=== PATIENT | female | born 1955 | race Caucasian/White ===

== ENCOUNTER 2018-10-25 12:56 | Emergency (ER) | payer OTHER ==
[2018-10-25] MEDS ORDERED: NA CHLORIDE 0.9% 1,000 ML ONE (13:36)
[2018-10-25 13:40] LABS: Urine Blood NEGATIVE (NEG); Urine Glucose NEGATIVE (NEG); Urine Protein NEGATIVE (NEG)
[2018-10-25 13:53] LABS: Absolute Lymphocytes (CBC) 1.7 K/uL (0.7-4.9); Absolute Monocytes 0.4 K/uL (0.1-1.3); Absolute Neutrophil 2.8 K/uL (1.8-8.0); Basophils % 0.9 % (0-1.3); Eosinophils % 2.4 % (0-4.4); Hematocrit 40.4 % (36.0-45.0); Lymphocytes % 33.3 % (15.3-44.8); MPV 9.4 fL (7.6-11.3); Monocytes % 7.1 % (3.3-12.3); RBC Red Blood Cell Count 4.36 M/uL (3.86-4.86)
[2018-10-25 14:04] LABS: Protime INR 0.88
--- NOTE | 2018-10-25 14:05 | ER ---
Nurse's Notes [facility] Name: Sandra Rodriguez Age: 63 yrs Sex: Female : 1955 Arrival Date: 10/25/2018 Time: 13:00 Bed 13 Private MD: Sunshine Merchant H Diagnosis: Dizziness and giddiness Presentation: 10/25 13:09 Presenting complaint: Patient states: Pain between shoulder blades that began Sunday ph , "pins and needles" to L arm that began Sun, dizziness that started yesterday, states, " I just don't feel right", denies fever, N/V, injury or recent illness. Transition of care: patient was not received from another setting of care. Onset of symptoms was October 25, 2018. Risk Assessment: Do you want to hurt yourself or someone else? Patient reports no desire to harm self or others. Initial Sepsis Screen: Does the patient meet any 2 criteria? No. Patient's initial sepsis screen is negative. Does the patient have a suspected source of infection? No. Patient's initial sepsis screen is negative. Care prior to arrival: None. 13:09 Method Of Arrival: Ambulatory ph 13:09 Acuity: BARRON 3 ph Historical: - Allergies: 13:13 PENICILLINS; ph 13:13 Cipro; ph - Home Meds: 13:13 levothyroxine 125 mcg tab 1 tab once daily [Active]; ph - PMHx: 13:13 Hypothyroidism; ph - PSHx: 13:13 ; Hysterectomy; ph - Immunization history:: Adult Immunizations unknown. - Social history:: Smoking status: Patient/guardian denies using tobacco. - Ebola Screening: : No symptoms or risks identified at this time. - Family history:: not pertinent. Screenin:31 Abuse screen: Denies threats or abuse. Nutritional screening: No deficits noted. tw2 Tuberculosis screening: No symptoms or risk factors identified. Fall Risk None identified. Assessment: 13:10 General: Appears in no apparent distress. slender, well groomed, Behavior is calm, tw2 cooperative, appropriate for age. Pain: Complains of pain in back. Neuro: Level of Consciousness is awake, alert, obeys commands, Oriented to person, place, time, situation, Reports dizziness. Cardiovascular: Heart tones S1 S2 Patient's skin is warm and dry. Respiratory: Airway is patent Respiratory effort is even, unlabored, Respiratory pattern is regular, symmetrical, Breath sounds are clear bilaterally. GI: No signs and/or symptoms were reported involving the gastrointestinal system. Abdomen is round non-distended, obese, Bowel sounds present X 4 quads. : No signs and/or symptoms were reported regarding the genitourinary system. EENT: No signs and/or symptoms were reported regarding the EENT system. Derm: No signs and/or symptoms reported regarding the dermatologic system. Musculoskeletal: Range of motion: intact in all extremities. 14:53 Reassessment: Patient appears in no apparent distress at this time. No changes from tw2 previously documented assessment. Patient and/or family updated on plan of care and expected duration. Pain level reassessed. Patient is alert, oriented x 3, equal unlabored respirations, skin warm/dry/pink. 15:43 Reassessment: Patient appears in no apparent distress at this time. No changes from tw2 previously documented assessment. Patient and/or family updated on plan of care and expected duration. Pain level reassessed. Patient is alert, oriented x 3, equal unlabored respirations, skin warm/dry/pink. 15:45 Reassessment: per Dr. Almazan, all is good for discharge, test complete and results tw2 verified. Vital Signs: 13:11 BP 156 / 97; Pulse 72; Resp 18; Temp 98.2; Pulse Ox 99% on R/A; Weight 107.05 kg; ph Height 5 ft. 7 in. (170.18 cm); 14:20 BP 143 / 72; Pulse 67; Resp 17; Pulse Ox 99% on R/A; tw2 15:43 BP 127 / 72; Pulse 69; Resp 17; Pulse Ox 100% on R/A; tw2 13:11 Body Mass Index 36.96 (107.05 kg, 170.18 cm) ph NIH Stroke Scale Scores: 14:05 NIHSS Score: 0 estefani ED Course: 13:00 Patient arrived in ED. mr 13:01 Sunshine Merchant DO is Private Physician. mr 13:09 Bed in low position. Call light in reach. Adult w/ patient. ekg monitor on. Pulse tw2 ox on. NIBP on. 13:11 Geovanny Mendoza MD is Attending Physician. estefani 13:11 Triage completed. ph 13:13 Arm band placed on Patient placed in an exam room, on a stretcher. ph 13:15 Roberta Cabrera RN is Primary Nurse. tw2 13:31 Inserted saline lock: 22 gauge in left antecubital area, using aseptic technique. tw2 ,using aseptic technique. per MYLENE Watson Blood collected. 13:43 XRAY Chest (1 view) In Process Unspecified. EDMS 13:45 X-ray completed. Portable x-ray completed in exam room. Patient tolerated procedure mh1 well. 13:51 EKG done, by airdrop systems technician. reviewed by Geovanny Mendoza MD. sm3 14:04 aFye Almazan MD is Hospitalizing Provider. estefani 14:40 2D Echocardiogram with Doppler completed by Actuarial Technician. dt2 14:48 Sunshine Merchant DO is Referral Physician. rp3 14:[address] Scan, Awaiting: Echo, and CT pending PRIOR to discharge per Dr. Almazan. tw2 15:03 CT Head C Spine In Process Unspecified. EDMS 15:45 No provider procedures requiring assistance completed. IV discontinued, intact, tw2 bleeding controlled, No redness/swelling at site. Pressure dressing applied. Administered Medications: 13:33 Drug: NS 0.9% 1000 ml Route: IV; Rate: 125 ml/hr; Site: left antecubital; tw2 15:39 Follow up: Response: No adverse reaction; IV Status: Order to discontinue infusion tw2 14:10 Drug: Lopressor 25 mg Route: PO; tw2 15:38 Follow up: Response: No adverse reaction tw2 14:15 Drug: Lovenox 1 mg/kg Route: Sub-Q; Site: right lower abdomen; tw2 15:38 Follow up: Response: No adverse reaction tw2 14:21 Drug: Aspirin Chewable Tablet 324 mg Route: PO; tw2 15:39 Follow up: Response: No adverse reaction tw2 14:22 Drug: Pepcid 20 mg Route: IVP; Site: left antecubital; tw2 15:38 Follow up: Response: No adverse reaction tw2 Outcome: 14:05 Decision to Hospitalize by Provider. estefani 14:50 Discharge ordered by . rp3 15:45 Discharged to home ambulatory, with significant other. tw2 15:45 Condition: stable 15:45 Discharge instructions given to patient, significant other, Instructed on discharge instructions, follow up and referral plans. Demonstrated understanding of instructions, follow-up care. 15:46 Patient left the ED. tw2 NIH Stroke Scale - NIH Stroke Score Date: 10/25/2018 Time: 14:05 Total Score = 0 1a. Level of Consciousness (LOC) - 0(Alert) 1b. Level of Consciousness (LOC) (Year \\T\\ Age) - 0(Both) 1c. LOC Commands (Open \\T\\ Closes Eyes/Assistant Women'S Tennis Coach) - 0(Both) 2. Best Gaze (Lateral Gaze Paresis) - 0(Normal) 3. Visual Field Loss - 0(No visual loss) 4. Facial Palsy - 0(Normal) 5a. Left Arm: Motor (10-second hold) - 0(No drift) 5b. Right Arm: Motor (10-second hold) - 0(No drift) 6a. Left Leg: Motor (5-second hold - always test supine) - 0(No drift) 6b. Right Leg: Motor (5-second hold - always test supine) - 0(No drift) 7. Limb Ataxia (finger/nose \\T\\ heel/beyer - test with eyes open) - 0(Absent) 8. Sensory Loss (pinprick arms/legs/face) - 0(Normal) 9. Best Language: Aphasia (description/naming/reading) - 0(No aphasia) 10. Dysarthria (speech clarity - read or repeat words) - 0(Normal) 11. Extinction and Inattention (visual/tactile/auditory/spatial/personal) - 0(No abnormality) Initials: estefani Signatures: Dispatcher [employer] EDMS Geovanny Mendoza MD MD cha Rivera, Mary Radha Briceño mh1 Shirley August RN RN Roberta Cabrera RN RN tw2 Faye Almazan MD MD rp3 Sheila Figueroa dt2 Treva Salazar 3
--- NOTE | 2018-10-25 14:05 | EDPHYS ---
Physician Documentation [facility] Name: Sandra Rodriguez Age: 63 yrs Sex: Female : 1955 Arrival Date: 10/25/2018 Time: 13:00 Bed 13 Private MD: Sunshine Merchant H ED Physician Geovanny Mendoza HPI: 10/25 13:59 This 63 yrs old Female presents to ER via Ambulatory with complaints of Back estefani Pain, Dizziness, Numbness Of Arm. 13:59 The patient presents with pain that is acute. The symptoms are located in the thoracic estefani area. Onset: The symptoms/episode began/occurred 2 day(s) ago. The pain radiates to the left arm. Severity of symptoms: At their worst the symptoms were mild, in the emergency department the symptoms are unchanged. 14:00 The patient or guardian reports chest pain that is located primarily in the atypical. estefani Onset: 3 day(s) ago. Associated signs and symptoms: Pertinent positives: weakness. Modifying factors: The patient symptoms are alleviated by nothing, the patient symptoms are aggravated by any movement. Historical: - Allergies: 13:13 PENICILLINS; ph 13:13 Cipro; ph - Home Meds: 13:13 levothyroxine 125 mcg tab 1 tab once daily [Active]; ph - PMHx: 13:13 Hypothyroidism; ph - PSHx: 13:13 ; Hysterectomy; ph - Immunization history:: Adult Immunizations unknown. - Social history:: Smoking status: Patient/guardian denies using tobacco. - Ebola Screening: : No symptoms or risks identified at this time. - Family history:: not pertinent. ROS: 14:00 Constitutional: Negative for fever, chills, and weight loss, Eyes: Negative for injury, estefani pain, redness, and discharge, ENT: Negative for injury, pain, and discharge, Neck: Negative for injury, pain, and swelling, Cardiovascular: Negative for chest pain, palpitations, and edema, Respiratory: Negative for shortness of breath, cough, wheezing, and pleuritic chest pain, Abdomen/GI: Negative for abdominal pain, nausea, vomiting, diarrhea, and constipation, : Negative for injury, bleeding, discharge, and swelling, MS/Extremity: Negative for injury and deformity, Skin: Negative for injury, rash, and discoloration, Psych: Negative for depression, anxiety, suicide ideation, homicidal ideation, and hallucinations, Allergy/Immunology: Negative for hives, rash, and allergies, Endocrine: Negative for neck swelling, polydipsia, polyuria, polyphagia, and marked weight changes. 14:00 Back: Positive for pain at rest, of the thoracic area. 14:00 Neuro: Positive for dizziness. Exam: 14:00 Constitutional: This is a well developed, well nourished patient who is awake, alert, estefani and in no acute distress. Head/Face: Normocephalic, atraumatic. Eyes: Pupils equal round and reactive to light, extra-ocular motions intact. Lids and lashes normal. Conjunctiva and sclera are non-icteric and not injected. Cornea within normal limits. Periorbital areas with no swelling, redness, or edema. ENT: Nares patent. No nasal discharge, no septal abnormalities noted. Tympanic membranes are normal and external auditory canals are clear. Oropharynx with no redness, swelling, or masses, exudates, or evidence of obstruction, uvula midline. Mucous membranes moist. Neck: Trachea midline, no thyromegaly or masses palpated, and no cervical lymphadenopathy. Supple, full range of motion without nuchal rigidity, or vertebral point tenderness. No Meningismus. Chest/axilla: Normal chest wall appearance and motion. Nontender with no deformity. No lesions are appreciated. Cardiovascular: Regular rate and rhythm with a normal S1 and S2. No gallops, murmurs, or rubs. Normal PMI, no JVD. No pulse deficits. Respiratory: Lungs have equal breath sounds bilaterally, clear to auscultation and percussion. No rales, rhonchi or wheezes noted. No increased work of breathing, no retractions or nasal flaring. Abdomen/GI: Soft, non-tender, with normal bowel sounds. No distension or tympany. No guarding or rebound. No evidence of tenderness throughout. Back: No spinal tenderness. No costovertebral tenderness. Full range of motion. Skin: Warm, dry with normal turgor. Normal color with no rashes, no lesions, and no evidence of cellulitis. MS/ Extremity: Pulses equal, no cyanosis. Neurovascular intact. Full, normal range of motion. Neuro: Awake and alert, GCS 15, oriented to person, place, time, and situation. Cranial nerves II-XII grossly intact. Motor strength 5/5 in all extremities. Sensory grossly intact. Cerebellar exam normal. Normal gait. Psych: Awake, alert, with orientation to person, place and time. Behavior, mood, and affect are within normal limits. Vital Signs: 13:11 BP 156 / 97; Pulse 72; Resp 18; Temp 98.2; Pulse Ox 99% on R/A; Weight 107.05 kg; ph Height 5 ft. 7 in. (170.18 cm); 14:20 BP 143 / 72; Pulse 67; Resp 17; Pulse Ox 99% on R/A; tw2 15:43 BP 127 / 72; Pulse 69; Resp 17; Pulse Ox 100% on R/A; tw2 13:11 Body Mass Index 36.96 (107.05 kg, 170.18 cm) ph NIH Stroke Scale Scores: 14:05 NIHSS Score: 0 estefani MDM: 13:11 Patient medically screened. estefani 14:05 Data reviewed: vital signs, nurses notes, lab test result(s), EKG, radiologic studies, estefani plain films. 10/25 13:17 Order name: Basic Metabolic Panel [facility] 10/25 13:17 Order name: CBC with Diff [facility] 10/25 13:17 Order name: LFT's; Complete Time: 14:37 [facility] 10/25 13:17 Order name: Magnesium; Complete Time: 14:37 [facility] 10/25 13:17 Order name: NT PRO-BNP; Complete Time: 14:37 [facility] 10/25 13:17 Order name: PT-INR; Complete Time: 14:37 [facility] 10/25 13:17 Order name: Troponin (emerg Dept Use Only); Complete Time: 14:37 [facility] 10/25 13:17 Order name: XRAY Chest (1 view); Complete Time: 14:37 [facility] 10/25 13:17 Order name: Lipase; Complete Time: 14:37 [facility] 10/25 13:17 Order name: Basic Metabolic Panel; Complete Time: 14:37 EDMS 10/25 13:17 Order name: CBC with Automated Diff; Complete Time: 14:37 EDME 10/25 13:27 Order name: Urine Dipstick--Ancillary (enter results); Complete Time: 14:37 eb 10/25 14:04 Order name: TSH [facility] 10/25 14:40 Order name: T4 Free EDME 10/25 13:17 Order name: EKG; Complete Time: 13:18 [facility] 10/25 13:17 Order name: Cardiac monitoring; Complete Time: 13:20 [facility] 10/25 13:17 Order name: EKG - Nurse/Tech; Complete Time: 13:52 [facility] 10/25 13:17 Order name: IV Saline Lock; Complete Time: 13:52 [facility] 10/25 13:17 Order name: Labs collected and sent; Complete Time: 13:52 [facility] 10/25 13:17 Order name: O2 Per Protocol; Complete Time: 13:53 [facility] 10/25 13:17 Order name: O2 Sat Monitoring; Complete Time: 13:53 [facility] 10/25 13:17 Order name: Urine Dipstick-Ancillary (obtain specimen); Complete Time: 13:52 [facility] 10/25 14:04 Order name: Echo w/ Doppler [facility] 10/25 14:53 Order name: CT Head C Spine rp3 Administered Medications: 13:33 Drug: NS 0.9% 1000 ml Route: IV; Rate: 125 ml/hr; Site: left antecubital; tw2 15:39 Follow up: Response: No adverse reaction; IV Status: Order to discontinue infusion tw2 14:10 Drug: Lopressor 25 mg Route: PO; tw2 15:38 Follow up: Response: No adverse reaction tw2 14:15 Drug: Lovenox 1 mg/kg Route: Sub-Q; Site: right lower abdomen; tw2 15:38 Follow up: Response: No adverse reaction tw2 14:21 Drug: Aspirin Chewable Tablet 324 mg Route: PO; tw2 15:39 Follow up: Response: No adverse reaction tw2 14:22 Drug: Pepcid 20 mg Route: IVP; Site: left antecubital; tw2 15:38 Follow up: Response: No adverse reaction tw2 Disposition: 10/25/18 14:50 Discharged to Home. Impression: Dizziness and giddiness. - Condition is Stable. - Discharge Instructions: Dizziness, [id number], Focal Neuropathy. - Medication Reconciliation Form, Thank You Letter, Antibiotic Education, Prescription Opioid Use form. - Follow up: Sunshine Merchant DO; When: 48 Hours; Reason: Recheck today's complaints. - Problem is new. - Symptoms are resolved. NIH Stroke Scale - NIH Stroke Score Date: 10/25/2018 Time: 14:05 Total Score = 0 1a. Level of Consciousness (LOC) - 0(Alert) 1b. Level of Consciousness (LOC) (Year \T\ Age) - 0(Both) 1c. LOC Commands (Open \T\ Closes Eyes/Criminal Justice Teacher) - 0(Both) 2. Best Gaze (Lateral Gaze Paresis) - 0(Normal) 3. Visual Field Loss - 0(No visual loss) 4. Facial Palsy - 0(Normal) 5a. Left Arm: Motor (10-second hold) - 0(No drift) 5b. Right Arm: Motor (10-second hold) - 0(No drift) 6a. Left Leg: Motor (5-second hold - always test supine) - 0(No drift) 6b. Right Leg: Motor (5-second hold - always test supine) - 0(No drift) 7. Limb Ataxia (finger/nose \T\ heel/beyer - test with eyes open) - 0(Absent) 8. Sensory Loss (pinprick arms/legs/face) - 0(Normal) 9. Best Language: Aphasia (description/naming/reading) - 0(No aphasia) 10. Dysarthria (speech clarity - read or repeat words) - 0(Normal) 11. Extinction and Inattention (visual/tactile/auditory/spatial/personal) - 0(No abnormality) Initials: estefani Signatures: Dispatcher [employer] EDGeovanny Crandall MD MD cha Hall, Patricia RN RN Roberta Cabrera RN RN tw2 Faey Almazan MD MD rp3 Corrections: (The following items were deleted from the chart) 14:48 14:05 Hospitalization Ordered by Faye Almazan MD for Observation. Preliminary rp3 diagnosis is Chest pain, unspecified; Essential (primary) hypertension; Dizziness and giddiness. Bed requested for Telemetry/MedSurg (observation). Status is Observation. Condition is Stable. Problem is new. Symptoms have improved. UTI on Admission? No. estefani 15:46 14:50 10/25/2018 14:50 Discharged to Home. Impression: Dizziness and giddiness. tw2 Condition is Stable. Forms are Medication Reconciliation Form, Thank You Letter, Antibiotic Education, Prescription Opioid Use. Follow up: Sunshine Merchant; When: 48 Hours; Reason: Recheck today's complaints. Problem is new. Symptoms are resolved. rp3
[2018-10-25 14:19] LABS: ALT/SGPT 28 U/L (12-78); AST/SGOT 19 U/L (15-37); Albumin 3.8 g/dL (3.4-5.0); Alkaline Phosphatase 77 U/L (45-117); BUN Blood Urea Nitrogen 18 mg/dL (7-18); Bicarbonate 31 mmol/L (21-32); Bilirubin Direct < 0.1 mg/dL (0-0.2); Bilirubin Total 0.3 mg/dL (0.2-1.0); Glucose Level 87 mg/dL (74-106); Lipase 124 U/L (73-393); Magnesium 2.5 mg/dL (1.8-2.4); NT PRO-BNP 127 pg/mL (<125); Potassium 3.5 mmol/L (3.5-5.1); Protein, Total 6.8 g/dL (6.4-8.2); Sodium Level 144 mmol/L (136-145); Troponin (Emerg Dept Use Only) < 0.02 ng/mL (0.0-0.045)
[2018-10-25] MEDS ORDERED: ASPIRIN 81 MG CHEWABLE TABLET ONE (14:22)
[2018-10-25] MEDS ORDERED: ENOXAPARIN 100 MG/ML SYR SQ ONE (14:23)
[2018-10-25] MEDS ORDERED: FAMOTIDINE 20 MG/2 ML VIAL IV ONE (14:23)
[2018-10-25] MEDS ORDERED: METOPROLOL TAR 25 MG TAB ONE (14:23)
--- NOTE | 2018-10-25 14:31 | RAD REPORT ---
EXAM DESCRIPTION: RAD - Chest Single View - 10/25/2018 1:43 pm CLINICAL HISTORY: Cough, chest pain COMPARISON: None. TECHNIQUE: AP portable chest image was obtained 1341 hours . FINDINGS: Interstitial markings are mildly prominent. Baseline for the patient is unknown. There is no focal consolidation. No failure or volume overload. Heart and vasculature are normal. No measurabl e pleural effusion and no pneumothorax. No acute bony abnormality seen. No acute aortic findings susp ected. IMPRESSION: No focal lung parenchymal process. No failure or volume overload. Interstitial markings are mildly prominent suspected to be baseline.
[2018-10-25 14:37] LABS: Thyroid Stimulating Hormone 5.63 uIU/mL (0.360-3.740)
--- NOTE | 2018-10-25 15:21 | RAD REPORT ---
EXAM DESCRIPTION: CT - [id number] - 10/25/2018 3:03 pm CLINICAL HISTORY: Trauma, head and neck injury. NUMBNESS/TINGLING COMPARISON: No comparisons TECHNIQUE: Axial 5 mm thick images of the head were obtained. Axial 2 mm thick images of the cervical spine were obtained with sagittal and coronal reconstruction images generated and reviewed. All CT scans are performed using dose optimization technique as appropriate and may include automated exposure control or mA/KV adjustment according to patient size. FINDINGS: CT HEAD WITHOUT CONTRAST: No acute hemorrhage, hydrocephalus or extra-axial collection is identified.No areas of brain edema or midline shift. The paranasal sinuses and mastoids are clear.The calvarium is intact. CT CERVICAL SPINE WITHOUT CONTRAST: No fracture or subluxation.No prevertebral soft tissues swelling is identified. Bilateral carotid at herosclerosis. IMPRESSION: No acute intracranial or cervical spine findings.
--- NOTE | 2018-10-25 16:43 | EKG ---
Test Date: 2018-10-25 Test Time: 13:51:40 Surgery Scheduling Coordinator: JORJE MEASUREMENT RESULTS: Intervals: Rate: 66 CT: 170 QRSD: 106 QT: 422 QTc: 442 Bailey: P: 65 CT: 170 QRS: 10 T: 44 INTERPRETIVE STATEMENTS: Normal sinus rhythm Normal ECG Compared to ECG 01/21/2015 18:14:29 No significant changes Electronically Signed On 10-25-18 16:42:34 CDT by Benny Kessler
--- NOTE | 2018-10-25 17:15 | ECHO ---
HEIGHT: 5 ft 7 in WEIGHT: 236 lb 0 oz DATE OF STUDY: 10/25/[address]: Geovanny Mendoza MD 2-DIMENSIONAL: YES M.MODE: YES DOPPLER: YES COLOR FLOW: YES TDS: PORTABLE: DEFINITY: BUBBLE STUDY: DIAGNOSIS: CHEST PAIN CARDIAC HISTORY: CATHERIZATION: NO SURGERY: NO PROSTHETIC VALVE: NO PACEMAKER: NO MEASUREMENTS (cm) DIASTOLIC (NORMALS) SYSTOLIC (NORMALS) IVSd 1.1 (0.6-1.2) LA Diam 3.5 (1.9-4.0) LVEF 62% LVIDd 5.2 (3.5-5.7) LVIDs 3.4 (2.0-3.5) %FS 34% LVPWd 1.1 (0.6-1.2) Ao Diam 2.6 (2.0-3.7) 2 DIMENSIONAL ASSESSMENT: RIGHT ATRIUM: NORMAL LEFT ATRIUM: NORMAL RIGHT VENTRICLE: NORMAL LEFT VENTRICLE: NORMAL TRICUSPID VALVE: NORMAL MITRAL VALVE: NORMAL PULMONIC VALVE: NORMAL AORTIC VALVE: SCLEROSIS PERICARDIAL EFFUSION: NONE AORTIC ROOT: NORMAL LEFT VENTRICULAR WALL MOTION: NORMAL DOPPLER/COLOR FLOW: NORMAL COMMENTS: NORMAL LEFT VENTRICULAR SIZE AND FUNCTION. AORTIC SCLEROSIS. NO WALL MOTION ABNORMALITY. NO EFFUSION. TECHNOLOGIST: WANDA BARNES
== END 2018-10-25 15:46 | disposition home or self-care (01) ==
LOC: ER 12:56
DX: R42 Dizziness and giddiness (principal); R53.1 Weakness; E03.9 Hypothyroidism, unspecified; Z88.0 Allergy status to penicillin; Z88.1 Allergy status to other antibiotic agents
CPT/HCPCS: 36415; 70450; 71045; 72125; 80048; 80076; 81003; 83690; 83735; 83880; 84439; 84443; 84484; 85025; 85610; 93005; 93306; 96361; 96372; 96374; 99284; J1650; J7030

== ENCOUNTER → 2023-08-26 | Emergency (ER) | payer OTHER ==
[~2023-08-26] MED LIST: CLOPIDOGREL 75 MG TABLET ONE; FENTANYL CITR 100 MCG/2 ML ONE; HEPARIN 5000 UNIT/ML 1 ML VIAL ONE; HEPARIN/D5W 25,000 UNIT/500 ML BAG IV ONE; NITROGLYCERIN 0.4 MG/TAB SL ONE; ONDANSETRON 4 MG/2 ML VIAL ONE; TENECTEPLASE 50 MG/10 ML VIAL IV ONE
--- NOTE | 2023-08-26 02:13 | EDPHYS ---
Physician Documentation [facility] Name: Sandra Rodriguez Age: 68 yrs Sex: Female : 1955 Arrival Date: 08/26/2023 Time: 01:59 Bed 4 Private MD: ED Physician Mickey Simms HPI: 08/25 03:00 This 68 yrs old Female presents to ER via EMS with complaints of Chest Pain. rt 03:00 Patient presents to the ED with acute onset of severe chest pain about 1230. Woke her rt up from sleep. Substernal, radiates to the right shoulder. Reports nausea, vomiting. Denies other acute complaints at this time, symptoms are severe in severity, no other aggravating or alleviating factors.. Historical: - Allergies: 02:37 Cipro; lg3 02:37 PENICILLINS; lg3 02:37 iv contrast; lg3 - Home Meds: 02:37 levothyroxine 125 mcg tab 1 tab once daily [Active]; lg3 - PMHx: 02:37 Hypothyroidism; lg3 - PSHx: 02:37 heart cath (Hypothyroidism); lg3 - Immunization history:: Adult Immunizations up to date, Client reports receiving the 2nd dose of the Covid vaccine, Flu vaccine is not up to date. - Social history:: Smoking status: Patient denies any tobacco usage or history of. Patient uses alcohol, only on a social basis. - Family history:: not pertinent. ROS: 03:00 Constitutional: Negative for fever, chills, and weight loss, Respiratory: Negative for rt shortness of breath, cough, wheezing, and pleuritic chest pain, MS/Extremity: Negative for injury and deformity, Skin: Negative for injury, rash, and discoloration, Neuro: Negative for headache, weakness, numbness, tingling, and seizure, 03:00 Cardiovascular: Positive for chest pain, Negative for edema, 03:00 Abdomen/GI: Positive for nausea and vomiting, Negative for abdominal pain, Exam: 02:21 ECG was reviewed by the Attending Physician. rt 02:33 ECG was reviewed by the Attending Physician. rt 02:59 ECG was reviewed by the Attending Physician. rt 03:00 Head/Face: Normocephalic, atraumatic. Chest/axilla: Normal chest wall appearance and rt motion. Nontender with no deformity. No lesions are appreciated. Cardiovascular: Regular rate and rhythm with a normal S1 and S2. No gallops, murmurs, or rubs. Normal PMI, no JVD. No pulse deficits. Respiratory: Lungs have equal breath sounds bilaterally, clear to auscultation and percussion. No rales, rhonchi or wheezes noted. No increased work of breathing, no retractions or nasal flaring. Abdomen/GI: Soft, non-tender, with normal bowel sounds. No distension or tympany. No guarding or rebound. No evidence of tenderness throughout. Skin: Warm, dry with normal turgor. Normal color with no rashes, no lesions, and no evidence of cellulitis. MS/ Extremity: Pulses equal, no cyanosis. Neurovascular intact. Full, normal range of motion. Neuro: Awake and alert, GCS 15, oriented to person, place, time, and situation. Cranial nerves II-XII grossly intact. Motor strength 5/5 in all extremities. Sensory grossly intact. Cerebellar exam normal. Normal gait. 03:00 Constitutional: The patient appears alert, awake, in obvious distress, moderately distressed, Vital Signs: 01:59 BP 146 / 89; Pulse 73; Resp 21; Temp 98.4; Pulse Ox 100% on R/A; Weight 76.66 kg; lg3 Height 5 ft. 6 in. ; 02:17 BP 130 / 84; Pulse 72; Resp 21; Pulse Ox 100% on R/A; km8 02:20 BP 129 / 81; Pulse 72; Resp 17 S; Pulse Ox 100% on R/A; rv1 02:25 BP 116 / 62; Pulse 76; Resp 21; Pulse Ox 100% on R/A; km8 02:30 BP 92 / 60; Pulse 89; Resp 16 S; Pulse Ox 100% on R/A; rv1 02:40 BP 99 / 67; Pulse 72; Resp 17 S; Pulse Ox 97% on R/A; rv1 02:45 BP 115 / 75; Pulse 68; Resp 16; Pulse Ox 96% on R/A; km8 02:50 BP 121 / 77; Pulse 69; Resp 16; Pulse Ox 97% on R/A; km8 02:55 BP 127 / 76; Pulse 75; Resp 16; Pulse Ox 100% on R/A; km8 03:00 BP 131 / 71; Pulse 74; Resp 15; Pulse Ox 99% on R/A; km8 03:05 BP 140 / 83; Pulse 78; Resp 21; Pulse Ox 100% on R/A; km8 03:10 BP 132 / 77; Pulse 80; Resp 18; Pulse Ox 100% on R/A; km8 01:59 Body Mass Index 27.28 (76.66 kg, 167.64 cm) lg3 MDM: 02:11 Patient medically screened. rt 03:00 Differential Diagnosis STEMI. Data reviewed: vital signs, nurses notes. Consideration rt of Admission/Observation Patient requires transfer for Entertainment Dancer. Management of patient was discussed with the following: Healthcare Network Pricing Consultant: Discussed with accepting unit aide. I considered the following discharge prescriptions or medication management in the emergency department Medications were administered in the Emergency Department. See MAR. Independent interpretation of the following test(s) in the Emergency Department X-Ray: My interpretation is No pneumothorax, interpretation of x-ray. Counseling: I had a detailed discussion with the patient and/or guardian regarding the historical points, exam findings, and any diagnostic results supporting the discharge/admit diagnosis, the need to transfer to another facility. Response to treatment: the patient's symptoms have markedly improved after treatment. ED course: Transport delayed due to availability of helicopter.. 08/25 02:11 Order name: Basic Metabolic Panel; Complete Time: 03:15 rt 08/25 02:11 Order name: CBC with Diff; Complete Time: 03:15 rt 08/25 02:11 Order name: LFT's; Complete Time: 03:15 rt 08/25 02:11 Order name: Magnesium; Complete Time: 03:15 rt 08/25 02:11 Order name: NT PRO-BNP; Complete Time: 03:15 rt 08/25 02:11 Order name: PT-INR; Complete Time: 03:15 rt 08/25 02:11 Order name: Troponin HS; Complete Time: 03:15 rt 08/25 02:11 Order name: XRAY Chest (1 view) rt 08/25 02:11 Order name: EKG; Complete Time: 02:12 rt 08/25 02:11 Order name: Cardiac monitoring; Complete Time: 02:14 rt 08/25 02:11 Order name: EKG - Nurse/Tech; Complete Time: 02:14 rt 08/25 02:11 Order name: IV Saline Lock; Complete Time: 02:14 rt 08/25 02:11 Order name: Labs collected and sent; Complete Time: 02:14 rt 08/25 02:11 Order name: O2 Per Protocol; Complete Time: :14 rt 08/25 02:11 Order name: O2 Sat Monitoring; Complete Time: 02:14 rt EC:21 Rate is 68 beats/min. Rhythm is regular, Normal Sinus Rhythm with No ectopy. QRS [place] rt is Normal. [place] interval is normal. QRS interval is normal. QT interval is normal. No Q waves. 02:33 Rate is 73 beats/min. Rhythm is regular, Normal Sinus Rhythm with No ectopy. QRS [place] rt is Normal. [place] interval is normal. QRS interval is normal. QT interval is normal. No Q waves. ST Segment is elevated in leads V1, V2. 02:59 Rate is 65 beats/min. Rhythm is regular, Sinus Rhythm with No ectopy. QRS [place] is rt Normal. [place] interval is normal. QRS interval is normal. QT interval is normal. ST Segment is elevated in lead V2. Administered Medications: 02:14 Drug: Nitroglycerin Sublingual 0.4 mg Sublingual once; every five minute if needed x3 tm6 Route: Sublingual; 03:28 Follow up: Response: No adverse reaction 02:28 Drug: Tenecteplase IV 40 mg IV at per protocol once {Co-Signature: km8 (Jami Florentino RN).} Route: IV; Rate: per protocol; Site: left forearm; 02:29 Follow up: IV Status: Completed infusion 03:27 Follow up: Response: No adverse reaction 02:34 Not Given (Other Intervention Used): TNK FOR STROKE - tenecteplase0.25 mg/kg IV jb4 at per protocol once; VA dose 02:38 Drug: Ondansetron IVP 4 mg IVP once; over 2 minutes Route: IVP; Site: left antecubital; 8 03:28 Follow up: Response: No adverse reaction 02:38 Drug: fentaNYL (PF) IVP 50 mcg IVP once Route: IVP; Site: left antecubital; 8 03:28 Follow up: Response: No adverse reaction 02:50 Drug: Clopidogrel PO 600 mg PO once Route: PO; jb4 03:27 Follow up: Response: No adverse reaction km8 02:52 Drug: Heparin ([place] Drip) 12 units/kg/hr - ([place] [address] units, D5W IV 500 ml) IV at jb4 calculated rate Per protocol; Max initial rate 1000 units/hr {Co-Signature: [email or web address] (Yang Ramey RN).} Route: IV; Rate: calculated rate; Site: right antecubital; 03:28 Follow up: IV Status: Infusion continued upon transfer km8 02:52 Drug: Heparin (VA-Bolus with thrombolytic) - HEParin IVP 60 units/kg IVP once; Max 4000 jb4 units {Co-Signature: [email or web address] (Yang Ramey RN).} Route: IVP; Site: right antecubital; 03:27 Follow up: Response: No adverse reaction km8 Disposition Summary: 08/26/23 02:13 Transfer Ordered Notes: Transfer Location: [facility] rt Reason: Higher level of care rt Condition: Critical rt Problem: new rt Symptoms: are unchanged rt Accepting Physician: (08/26/23 03:29) km8 Diagnosis - ST elevation (STEMI) myocardial infarction of unspecified site rt Forms: - Medication Reconciliation Form rt - SBAR form rt Critical care time excluding procedures: 03:00 Critical care time: Bedside Care: 30 minutes, Consultation: 10 minutes. Total time: 40 rt minutes Signatures: Dispatcher [employer] EDSanto Gomez RN RN jb4 Xi Fierro RN RN lg3 Mickey Simms MD MD rt Jami Florentino RN RN km8 Yang Ramey RN RN tm6 Jami Florentino RN, Tawney RN tm6 Corrections: (The following items were deleted from the chart) 02:23 02:21 Rate is 68 beats/min. Rhythm is regular, Normal Sinus Rhythm with No ectopy. QRS rt [place] is Normal. [place] interval is normal. QRS interval is normal. QT interval is normal. No Q waves. ST Segment is elevated in leads V1, V2, V3. rt 03:29 02:13 rt km8
[2023-08-26 02:42] LABS: PT Prothrombin Time 9.6 SECONDS (9.5-12.5); Protime INR 0.87
[2023-08-26 02:43] LABS: Absolute Eosinophils 0.1 K/uL (0-0.5); Absolute Lymphocytes (CBC) 2.4 K/uL (0.7-4.9); Absolute Monocytes 0.4 K/uL (0.1-1.3); Absolute Neutrophil 2.7 K/uL (1.8-8.0); Basophils % 0.6 % (0-1.3); Eosinophils % 1.3 % (0-4.4); Hematocrit 37.2 % (36.0-45.0); Hemoglobin 12.4 g/dL (12.0-15.0); Lymphocytes % 42.6 % (15.3-44.8); MCH 30.9 pg (27.0-35.0); MCHC 33.3 g/dL (32.0-36.0); MCV 92.8 fL (80-100); Monocytes % 7.8 % (3.3-12.3); Neutrophils % 47.7 % (41.7-73.7); Platelets 274 thou/uL (152-406); RBC Red Blood Cell Count 4.01 M/uL (3.86-4.86); Red Cell Distribution Width 14.2 % (12.1-15.2)
[2023-08-26 02:58] LABS: ALT/SGPT 29 U/L (13-56); AST/SGOT 28 U/L (15-37); Albumin 3.6 g/dL (3.4-5.0); Albumin/Globulin Ratio 1.1 (1.1-1.8); Alkaline Phosphatase 89 U/L (45-117); Anion Gap 10.4 mEq/L (5.0-15.0); BUN Blood Urea Nitrogen 10 mg/dL (7-18); Bicarbonate 27 mEq/L (21-32); Bilirubin Total 0.2 mg/dL (0.2-1.0); Globulin 3.2 g/dL (2.3-3.5); Glomerular Filtration Rate 98 ml/min (=/>90); Glucose Level 129 mg/dL (74-106); Magnesium 2.1 mg/dL (1.6-2.4); NT PRO-BNP 132 pg/mL (<125); Potassium 3.4 mEq/L (3.5-5.1); Protein, Total 6.8 g/dL (6.4-8.2); Sodium Level 140 mEq/L (136-145); Troponin High Sensitivity 56.5 pg/mL (<58.9)
[2023-08-26 03:15] LABS: Bilirubin Direct < 0.1 mg/dL (0-0.2); Bilirubin Indirect, Calculated ND mg/dL (0.2-0.8)
--- NOTE | 2023-08-26 03:30 | ER ---
Nurse's Notes [facility] Name: Sandra Rodriguez Age: 68 yrs Sex: Female : 1955 Arrival Date: 08/26/2023 Time: 01:59 Bed 4 Private MD: Diagnosis: ST elevation (STEMI) myocardial infarction of unspecified site Presentation: 08/25 01:59 Chief complaint: Patient states: sudden onset CP radiating to left shoulder and arm. 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 pain 03/13. Coronavirus screen: Client denies travel out of the [place] in the last 14 days. At this time, the client does not indicate any symptoms associated with coronavirus-19. Ebola Screen: No symptoms or risks identified at this time. Initial Sepsis Screen: Does the patient meet any 2 criteria? No. Patient's initial sepsis screen is negative. Does the patient have a suspected source of infection? No. Patient's initial sepsis screen is negative. Risk Assessment: Do you want to hurt yourself or someone else? Patient reports no desire to harm self or others. Onset of symptoms was August 26, 2023. Care prior to arrival: Medication(s) given: ASA, 325 mg, IV initiated. 20 GA, in the right antecubital area, Glucose check: 81. 01:59 Method Of Arrival: EMS: [facility] lg3 01:59 Acuity: BARRON 2 lg3 Triage Assessment: 02:37 General: Appears in no apparent distress. uncomfortable, Behavior is calm, cooperative. lg3 Pain: Complains of pain in chest Pain radiates to left shoulder, left arm Pain currently is 10 out of 10 on a pain scale. Alleviated by nothing. Noted to be guarding, resistant to movement. EENT: No deficits noted. No signs and/or symptoms were reported regarding the EENT system. Neuro: No deficits noted. [place] Agitation-Sedation Scale (RASS): 0 - Alert and Calm Level of Consciousness is awake, alert, obeys commands, Oriented to person, place, time, situation. Cardiovascular: Reports chest pain, Capillary refill < 3 seconds Clubbing of nail beds is absent JVD is absent Patient's skin is warm and dry. Rhythm is sinus rhythm. Respiratory: No deficits noted. Airway is patent Respiratory effort is even, unlabored, Respiratory pattern is regular, symmetrical, Breath sounds are clear bilaterally. GI: No deficits noted. Abdomen is round non-distended, Reports nausea. : No deficits noted. No signs and/or symptoms were reported regarding the genitourinary system. Derm: No deficits noted. No signs and/or symptoms reported regarding the dermatologic system. Skin is intact, is healthy with good turgor, Skin is dry, Skin is normal, Skin temperature is warm. Musculoskeletal: No deficits noted. No signs and/or symptoms reported regarding the musculoskeletal system. Circulation, motion, and sensation intact. Range of motion: intact in all extremities. Historical: - Allergies: 02:37 Cipro; lg3 02:37 PENICILLINS; lg3 02:37 iv contrast; lg3 - Home Meds: 02:37 levothyroxine 125 mcg tab 1 tab once daily [Active]; lg3 - PMHx: 02:37 Hypothyroidism; lg3 - PSHx: 02:37 heart cath (Hypothyroidism); lg3 - Immunization history:: Adult Immunizations up to date, Client reports receiving the 2nd dose of the Covid vaccine, Flu vaccine is not up to date. - Social history:: Smoking status: Patient denies any tobacco usage or history of. Patient uses alcohol, only on a social basis. - Family history:: not pertinent. Screenin:59 [facility] ED Fall Risk Assessment (Adult) History of falling in the last 3 months, lg3 including since admission No falls in past 3 months (0 pts). Abuse screen: Denies threats or abuse. Denies injuries from another. Nutritional screening: No deficits noted. Tuberculosis screening: No symptoms or risk factors identified. Assessment: 02:38 Reassessment: report given to Dorota CHAKRABORTY in [facility] CCU. tm6 Vital Signs: 01:59 BP 146 / 89; Pulse 73; Resp 21; Temp 98.4; Pulse Ox 100% on R/A; Weight 76.66 kg; lg3 Height 5 ft. 6 in. ; 02:17 BP 130 / 84; Pulse 72; Resp 21; Pulse Ox 100% on R/A; km8 02:20 BP 129 / 81; Pulse 72; Resp 17 S; Pulse Ox 100% on R/A; rv1 02:25 BP 116 / 62; Pulse 76; Resp 21; Pulse Ox 100% on R/A; km8 02:30 BP 92 / 60; Pulse 89; Resp 16 S; Pulse Ox 100% on R/A; rv1 02:40 BP 99 / 67; Pulse 72; Resp 17 S; Pulse Ox 97% on R/A; rv1 02:45 BP 115 / 75; Pulse 68; Resp 16; Pulse Ox 96% on R/A; km8 02:50 BP 121 / 77; Pulse 69; Resp 16; Pulse Ox 97% on R/A; km8 02:55 BP 127 / 76; Pulse 75; Resp 16; Pulse Ox 100% on R/A; km8 03:00 BP 131 / 71; Pulse 74; Resp 15; Pulse Ox 99% on R/A; km8 03:05 BP 140 / 83; Pulse 78; Resp 21; Pulse Ox 100% on R/A; km8 03:10 BP 132 / 77; Pulse 80; Resp 18; Pulse Ox 100% on R/A; km8 01:59 Body Mass Index 27.28 (76.66 kg, 167.64 cm) lg3 ED Course: 01:59 Initial lab(s) drawn, by me, sent to lab. Inserted saline lock: 22 gauge in left lg3 forearm, using aseptic technique. Blood collected. Patient maintains SpO2 saturation greater than 95% on room air. 01:59 Maintain EMS IV. Dressing intact. Good blood return noted. Site clean \T\ dry. Gauge \T\ lg 3 site: 20 RAC. 01:59 Patient has correct armband on for positive identification. Placed in gown. Bed in low lg3 position. Call light in reach. Side rails up X 1. Client placed on continuous cardiac and pulse oximetry monitoring. NIBP monitoring applied. school lunch monitor on. Door closed. Noise minimized. Warm blanket given. Family accompanied patient. 02:09 Patient arrived in ED. rv1 02:09 Initiated transfer with [facility]. rv1 02:11 Mickey Simms MD is Attending Physician. rt 02:16 EKG done, by ED staff, reviewed by Mickey Simms MD. tm6 02:22 Called [facility], given 40 min ETA. rv1 02:[address] Gayle to [place] [id number] bed 12. rv1 02:30 XRAY Chest (1 view) In Process Unspecified. EDMS 02:37 Triage completed. lg3 02:37 Arm band placed on right wrist. lg3 03:27 No provider procedures requiring assistance completed. Patient transferred, IV remains km8 in place. 03:27 Provided Education on: transfer process. km8 Administered Medications: 02:14 Drug: Nitroglycerin Sublingual 0.4 mg Sublingual once; every five minute if needed x3 tm6 Route: Sublingual; 03:28 Follow up: Response: No adverse reaction 8 02:28 Drug: Tenecteplase IV 40 mg IV at per protocol once {Co-Signature: [email or web address] (Jami Florentino RN).} Route: IV; Rate: per protocol; Site: left forearm; 02:29 Follow up: IV Status: Completed infusion 8 03:27 Follow up: Response: No adverse reaction 8 02:34 Not Given (Other Intervention Used): TNK FOR STROKE - tenecteplase0.25 mg/kg IV jb4 at per protocol once; [place] dose 02:38 Drug: Ondansetron IVP 4 mg IVP once; over 2 minutes Route: IVP; Site: left antecubital; km8 03:28 Follow up: Response: No adverse reaction 8 02:38 Drug: fentaNYL (PF) IVP 50 mcg IVP once Route: IVP; Site: left antecubital; km8 03:28 Follow up: Response: No adverse reaction 8 02:50 Drug: Clopidogrel PO 600 mg PO once Route: PO; jb4 03:27 Follow up: Response: No adverse reaction km8 02:52 Drug: Heparin ([place] Drip) 12 units/kg/[place] - ([place] [address] units, D5W IV 500 ml) IV at jb4 calculated rate Per protocol; Max initial rate 1000 units/hr {Co-Signature: [email or web address] (Yang Ramey RN).} Route: IV; Rate: calculated rate; Site: right antecubital; 03:28 Follow up: IV Status: Infusion continued upon transfer km8 02:52 Drug: Heparin ([place]-Bolus with thrombolytic) - HEParin IVP 60 units/kg IVP once; Max 4000 jb4 units {Co-Signature: triston (Yang Ramey RN).} Route: IVP; Site: right antecubital; 03:27 Follow up: Response: No adverse reaction km8 Medication: 01:59 VIS not applicable for this client. lg3 Outcome: 02:13 ER care complete, transfer ordered by . rt 03:29 Transferred by helicopter to [facility], [facility], Transfer form completed. km8 03:29 critical 03:29 Instructed on the need for transfer, Demonstrated understanding of instructions, 03:29 Patient left the ED. km8 Signatures: Dispatcher [employer] EDMS Santo Zeng, RN RN jb4 Xi Fierro RN RN lg3 Mickey Simms MD MD rt Janae Garg rv1 Jami Florentino RN RN km8 Yang Ramey RN RN tm6 Jami Florentino RN Yang Ramey RN 6 Corrections: (The following items were deleted from the chart) 02:22 02:13 BP 146 / 89; Pulse 73bpm; Resp 21bpm; Pulse Ox 100% RA; rv1 rv1 02:38 02:13 BP 146 / 89; Pulse 73bpm; Resp 21bpm; Pulse Ox 100% RA; Temp 97.9F; 76.66 kg; rv1 Height 5 ft. 6 in.; BMI: 27.2; rv1 02:48 02:13 BP 146 / 89; Pulse 73bpm; Resp 21bpm; Pulse Ox 100% RA; Temp 98.4F; 76.66 kg; lg3 Height 5 ft. 6 in.; BMI: 27.2; rv1 03:02 03:00 Initiated transfer with [facility] rv1 rv1
[2023-08-26 03:57] VITALS: BP 132/77; TEMP 98.4; O2SAT 100
--- NOTE | 2023-08-27 11:12 | RAD REPORT ---
EXAM DESCRIPTION: Chest Single View CLINICAL HISTORY: CHEST PAIN COMPARISON: None. FINDINGS: Single frontal radiograph view of the chest. Cardiomediastinal silhouette: Atherosclerotic calcification of thoracic aorta. Heart is not enlarged. Lungs: No consolidation, pneumothorax, or pleural effusion. Leads overlie the chest. Bones: No acute osseous abnormality. Degenerative change of the spine and shoulders. Upper abdomen: No abnormality identified. IMPRESSION: 1. No acute pulmonary process identified. Electronically signed by: Dl Leiva DO 08/26/2023 03:01 AM CDT M Due to temporary technical issues with the PACS/Fluency reporting system, reports are being signed by the in house radiologist without review as a courtesy to ensure prompt reporting. The interpreting r adiologist is fully responsible for the content of the report.
--- NOTE | 2023-08-27 14:17 | EKG ---
Test Date: 2023-08-26 Test Time: 02:44:53 Smeller: RV MEASUREMENT RESULTS: Intervals: Rate: 65 MD: 174 QRSD: 108 QT: 472 QTc: 490 [place]: P: 64 MD: 174 QRS: -16 T: 61 INTERPRETIVE STATEMENTS: Normal sinus rhythm Septal infarct, age undetermined Abnormal ECG Compared to ECG 08/26/2023 02:20:20 No significant changes Electronically Signed On 08-27-23 14:14:10 CDT by Hiram Villela
--- NOTE | 2023-08-27 14:18 | EKG ---
Test Date: 2023-08-26 Test Time: 01:57:22 Food Counter Worker: RV MEASUREMENT RESULTS: Intervals: Rate: 68 TX: 166 QRSD: 104 QT: 436 QTc: 463 [place]: P: 62 TX: 166 QRS: -26 T: 62 INTERPRETIVE STATEMENTS: Normal sinus rhythm Anteroseptal infarct, possibly acute ACUTE ME / STEMI Abnormal ECG Compared to ECG 10/25/2018 13:51:40 Myocardial infarct finding now present Electronically Signed On 08-27-23 14:14:22 CDT by Hiram Villela
--- NOTE | 2023-08-27 14:18 | EKG ---
Test Date: 2023-08-26 Test Time: 02:20:20 Truer Pinion And Wheel: RV MEASUREMENT RESULTS: Intervals: Rate: 73 DE: 170 QRSD: 110 QT: 458 QTc: 504 [place]: P: 72 DE: 170 QRS: -20 T: 62 INTERPRETIVE STATEMENTS: Normal sinus rhythm Anteroseptal infarct, possibly acute ACUTE NM / STEMI Abnormal ECG Compared to ECG 08/26/2023 01:57:22 No significant changes Electronically Signed On 08-27-23 14:14:12 CDT by Hiram Villela
== END ==
LOC: ER 01:59
DX: I21.3 ST elevation (STEMI) myocardial infarction of unspecified site (principal); E03.9 Hypothyroidism, unspecified; Z88.0 Allergy status to penicillin; Z88.1 Allergy status to other antibiotic agents; Z91.041 Radiographic dye allergy status; Z98.61 Coronary angioplasty status
CPT/HCPCS: 93005 ×3; 85025; 80048; 36415; 83735; 85610; 80076; 84484; 83880; 71045; J1644; J3101; J3010; J2405; 92977; 99285

== ENCOUNTER 2023-10-31 19:57 | Emergency (ER) | payer OTHER, BC ==
[2023-10-31] MEDS ORDERED: NA CHLORIDE 0.9% 1,000 ML ONE (21:06)
[2023-10-31 21:50] LABS: Absolute Eosinophils 0.1 K/uL (0-0.5); Absolute Monocytes 0.4 K/uL (0.1-1.3); Absolute Neutrophil 3.4 K/uL (1.8-8.0); Basophils % 0.4 % (0-1.3); Eosinophils % 2.2 % (0-4.4); Hematocrit 37.3 % (36.0-45.0); Hemoglobin 12.5 g/dL (12.0-15.0); Lymphocytes % 33.8 % (15.3-44.8); MCH 32.1 pg (27.0-35.0); MCHC 33.5 g/dL (32.0-36.0); MCV 95.6 fL (80-100); MPV 9.7 fL (7.6-11.3); Neutrophils % 57.6 % (41.7-73.7); Platelets 224 thou/uL (152-406); Red Cell Distribution Width 14.3 % (12.1-15.2)
[2023-10-31 21:58] LABS: PT Prothrombin Time 10.1 SECONDS (9.5-12.5); Protime INR 0.92
[2023-10-31 22:19] LABS: ALT/SGPT 29 U/L (13-56); AST/SGOT 19 U/L (15-37); Albumin 3.4 g/dL (3.4-5.0); Albumin/Globulin Ratio 1.3 (1.1-1.8); Alkaline Phosphatase 84 U/L (45-117); Anion Gap 6.2 mEq/L (5.0-15.0); BUN Blood Urea Nitrogen 18 mg/dL (7-18); Bicarbonate 29 mEq/L (21-32); Bilirubin Total 0.3 mg/dL (0.2-1.0); Globulin 2.7 g/dL (2.3-3.5); Glomerular Filtration Rate 89 ml/min (=/>90); Glucose Level 90 mg/dL (74-106); Magnesium 2.2 mg/dL (1.6-2.4); NT PRO-BNP 286 pg/mL (<125); Potassium 4.2 mEq/L (3.5-5.1); Protein, Total 6.1 g/dL (6.4-8.2); Sodium Level 138 mEq/L (136-145); Troponin High Sensitivity 8.2 pg/mL (<58.9)
[2023-10-31 22:20] LABS: Bilirubin Direct < 0.2 mg/dL (0-0.2); Bilirubin Indirect, Calculated 0.1 mg/dL (0.2-0.8)
--- NOTE | 2023-11-01 01:55 | ER ---
Nurse's Notes [facility] Name: Sandra Rodriguez Age: 68 yrs Sex: Female : 1955 Arrival Date: 10/31/2023 Time: 19:57 Bed 20 Private MD: Diagnosis: Low back pain; acute lower back pain. Left arm paresthesias Presentation: 10/30 21:14 Chief complaint: Patient states: I have been having back pain on the left side of my jb4 back beneath my shoulder blade. 21:14 Method Of Arrival: Ambulatory jb4 21:14 Coronavirus screen: At this time, the client does not indicate any symptoms associated jb4 with coronavirus-19. Ebola Screen: No symptoms or risks identified at this time. Initial Sepsis Screen: Does the patient meet any 2 criteria? No. Patient's initial sepsis screen is negative. Does the patient have a suspected source of infection? No. Patient's initial sepsis screen is negative. Risk Assessment: Do you want to hurt yourself or someone else? Patient reports no desire to harm self or others. Onset of symptoms was October 31, 2023. Transition of care: patient was not received from another setting of care. 21:14 Acuity: BARRON 2 jb4 Historical: - Allergies: 21:14 IV contrast; jb4 21:14 Cipro; jb4 21:14 PENICILLINS; jb4 - Home Meds: 21:14 levothyroxine 125 mcg tab 1 tab once daily [Active]; jb4 - PMHx: 21:14 Hypothyroidism; jb4 - PSHx: 21:14 heart cath (yr); jb4 - Immunization history:: Adult Immunizations up to date. - Infectious Disease History:: Denies. - Social history:: Smoking status: Patient denies any tobacco usage or history of. - Family history:: not pertinent. Screenin:22 [facility] ED Fall Risk Assessment (Adult) History of falling in the last 3 months, jb4 including since admission No falls in past 3 months (0 pts) Confusion or Disorientation No (0 pts). Abuse screen: Denies threats or abuse. Nutritional screening: No deficits noted. Tuberculosis screening: No symptoms or risk factors identified. Assessment: 21:22 General: Appears in no apparent distress. comfortable, Behavior is calm, cooperative, jb4 appropriate for age. Pain: Complains of pain in back Pain does not radiate. Pain currently is 6 out of 10 on a pain scale. Neuro: Level of Consciousness is awake, alert, obeys commands, Oriented to person, place, time, situation. Cardiovascular: Patient's skin is warm and dry. Respiratory: Airway is patent Respiratory effort is even, unlabored, Respiratory pattern is regular, symmetrical. GI: No signs and/or symptoms were reported involving the gastrointestinal system. : No signs and/or symptoms were reported regarding the genitourinary system. EENT: No signs and/or symptoms were reported regarding the EENT system. Derm: Skin is intact, Skin is pink, warm \T\ dry. 22:19 Reassessment: Patient appears in no apparent distress at this time. Patient and/or jb4 family updated on plan of care and expected duration. Pain level reassessed. Patient is alert, oriented x 3, equal unlabored respirations, skin warm/dry/pink. 23:26 Reassessment: Patient appears in no apparent distress at this time. Patient and/or jb4 family updated on plan of care and expected duration. Pain level reassessed. Patient is alert, oriented x 3, equal unlabored respirations, skin warm/dry/pink. 10/31 00:30 Reassessment: Patient appears in no apparent distress at this time. Patient and/or jb4 family updated on plan of care and expected duration. Pain level reassessed. Patient is alert, oriented x 3, equal unlabored respirations, skin warm/dry/pink. 01:20 Reassessment: Patient appears in no apparent distress at this time. Patient and/or jb4 family updated on plan of care and expected duration. Pain level reassessed. Patient is alert, oriented x 3, equal unlabored respirations, skin warm/dry/pink. Vital Signs: 10/30 21:00 BP 126 / 83; Pulse 66; Resp 16; Temp 97.6(TE); Pulse Ox 98% on R/A; jb4 22:00 BP 132 / 74; Pulse 73; Resp 16; Pulse Ox 99% on R/A; jb4 [employer] Coma Score: 10/31 01:52 Eye Response: spontaneous(4). Motor Response: obeys commands(6). Verbal Response: sp4 oriented(5). Total: 15. ED Course: 10/30 20:00 Patient arrived in ED. gm2 20:03 Kunal Toro MD is Attending Physician. sp4 21:13 Troponin HS Sent. jb4 21:13 PT-INR Sent. jb4 21:13 NT PRO-BNP Sent. jb4 21:13 Magnesium Sent. jb4 21:13 LFT's Sent. jb4 21:13 CBC with Diff Sent. jb4 21:13 Basic Metabolic Panel Sent. jb4 21:14 Arm band placed on right wrist. jb4 21:39 Santo Zeng, RN is Primary Nurse. jb4 23:11 Chest Abd Pelvis Wo Con In Process Unspecified. EDMS 10/31 01:21 Triage completed. jb4 02:15 No provider procedures requiring assistance completed. IV discontinued, intact, jb4 bleeding controlled, No redness/swelling at site. Pressure dressing applied. Administered Medications: 10/30 21:13 Drug: NS 0.9% IV 1000 ml IV at 125 ml/hr continuous Route: IV; Rate: 125 ml/hr; Site: [facility] right antecubital; Medication: 21:22 VIS not applicable for this client. jb4 Outcome: 10/31 01:54 Discharge ordered by . sp4 02:15 Discharged to home ambulatory, jb4 02:15 Condition: stable 02:15 Discharge instructions given to patient, Instructed on discharge instructions, follow up and referral plans. Demonstrated understanding of instructions, follow-up care, 02:21 Patient left the ED. jb4 Signatures: Dispatcher [employer] EDMS Santo Zeng RN RN jb4 Kunal Toro MD MD sp4 Tamara Felix 2 Corrections: (The following items were deleted from the chart) 01:10/30 21:00 BP 126 / 83; Pulse 66bpm; Resp 16bpm; Pulse Ox 98% RA; jb4 jb4
--- NOTE | 2023-11-01 01:55 | EDPHYS ---
Physician Documentation [facility] Name: Sandra Rodriguez Age: 68 yrs Sex: Female : 1955 Arrival Date: 10/31/2023 Time: 19:57 Bed 20 Private MD: ED Physician Kunal Toro HPI: 10/30 20:03 This 68 yrs old Female presents to ER via Unassigned with complaints of Back sp4 Pain, Numbness Of Arm. 10/31 22:24 Patient is a very pleasant 68-year-old female with history of prior acute [place],, 3 prior sp4 stents in August. Also on prasugrel and aspirin. Presents with left lower back pain associated with numbness and tingling over the left arm. Patient is concerned for recurrence of a heart attack.. Patient denies chest pain or shortness of breath.. Historical: - Allergies: 10/30 21:14 IV contrast; jb4 21:14 Cipro; jb4 21:14 PENICILLINS; jb4 - Home Meds: 21:14 levothyroxine 125 mcg tab 1 tab once daily [Active]; jb4 - PMHx: 21:14 Hypothyroidism; jb4 - PSHx: 21:14 heart cath (yr); jb4 - Immunization history:: Adult Immunizations up to date. - Infectious Disease History:: Denies. - Social history:: Smoking status: Patient denies any tobacco usage or history of. - Family history:: not pertinent. ROS: 10/31 22:24 Constitutional: Negative for fever, chills, and weight loss, positive for left lower sp4 back pain and left arm numbness and tingling. All other systems are negative, Exam: 01:52 Constitutional: This is a well developed, well nourished patient who is awake, alert, sp4 and in no acute distress. Head/Face: Normocephalic, atraumatic. Eyes: Pupils equal round and reactive to light, extra-ocular motions intact. Lids and lashes normal. Conjunctiva and sclera are not injected. Cornea within normal limits. Periorbital areas with no swelling, redness, or edema. ENT: Nares patent. No nasal discharge, no septal abnormalities noted. Tympanic membranes are normal and external auditory canals are clear. Oropharynx with no redness, swelling, or masses, exudates, or evidence of obstruction, uvula midline. Mucous membranes moist. Neck: Trachea midline, no thyromegaly or masses palpated, and no cervical lymphadenopathy. Supple, full range of motion without nuchal rigidity, or vertebral point tenderness. Chest/axilla: Normal chest wall appearance and motion. Nontender with no deformity. No lesions are appreciated. Cardiovascular: Regular rate and rhythm with a normal S1 and S2. No gallops, murmurs, or rubs. Normal PMI, no JVD. No pulse deficits. Respiratory: Lungs have equal breath sounds bilaterally, clear to auscultation and percussion. No rales, rhonchi or wheezes noted. No increased work of breathing, no retractions or nasal flaring. Abdomen/GI: Soft, with normal bowel sounds. No distension or tympany. No guarding or rebound. No evidence of tenderness throughout. Back: No spinal tenderness. No costovertebral tenderness. Skin: Warm, dry with normal turgor. Normal color with no rashes, no lesions, and no evidence of cellulitis. MS/ Extremity: Pulses equal, no cyanosis. Neurovascular intact. Full, normal range of motion. Neuro: Awake and alert, GCS 15, oriented to person, place, time, and situation. Cranial nerves II-XII grossly intact. Motor strength 5/5 in all extremities. Sensory grossly intact. Psych: Awake, alert, with orientation to person, place and time. Behavior, mood, and affect are within normal limits 01:52 ECG was reviewed by the Attending Physician. EKG 0 115 normal sinus rhythm, normal EKG, rate 62 Vital Signs: 10/30 21:00 BP 126 / 83; Pulse 66; Resp 16; Temp 97.6(TE); Pulse Ox 98% on R/A; jb4 22:00 BP 132 / 74; Pulse 73; Resp 16; Pulse Ox 99% on R/A; jb4 [place] Coma Score: 10/31 01:52 Eye Response: spontaneous(4). Motor Response: obeys commands(6). Verbal Response: sp4 oriented(5). Total: 15. MDM: 10/30 20:17 Patient medically screened. sp4 10/31 01:13 ED course: EXAM: CT Chest, Abdomen and Pelvis Without Intravenous Contrast CLINICAL sp4 HISTORY: back pain eval for dissection TECHNIQUE: Axial computed tomography images of the chest, abdomen and pelvis without intravenous contrast. Sagittal and coronal reformatted images were created and reviewed. This CT exam was performed using one or more of the following dose reduction techniques: automated exposure control, adjustment of the mA and/or kV according to patient size, and/or use of iterative reconstruction technique. COMPARISON: No relevant prior studies available. FINDINGS: CHEST: Lungs: Scattered bilateral subsegmental atelectasis/pleural parenchymal scar. No focal consolidation. No mass. Pleural space: Unremarkable. No significant effusion. No pneumothorax. Heart: Coronary artery calcification. No cardiomegaly. No significant pericardial effusion. ABDOMEN: Liver: Unremarkable. Gallbladder and bile ducts: Innumerable gallstones within a mildly contracted gallbladder. The gallbladder wall is top normal in thickness. No pericholecystic fluid. No ductal dilation. Pancreas: Unremarkable. No ductal dilation. Spleen: Splenic parenchymal calcifications compatible with remote granulomatous organism exposure. Adrenals: Unremarkable. No mass. Kidneys and ureters: Unremarkable. No obstructing stones. No hydronephrosis. Stomach and bowel: Colonic diverticula without adjacent inflammatory change. No obstruction. No mucosal thickening. PELVIS: Appendix: The appendix is not definitively visualized. No findings to suggest acute appendicitis. Bladder: Unremarkable. No stones. Reproductive: There has been a hysterectomy. No adnexal cysts or masses are identified. CHEST, ABDOMEN and PELVIS: Intraperitoneal space: Unremarkable. No significant fluid collection. No free air. Bones/joints: Osseous structures are osteopenic. Generalized loss of mid thoracic vertebral body height. No acute fracture. T6 intraosseous hemangioma. No dislocation. Soft tissues: Small fat-containing supraumbilical and tiny fat-containing umbilical hernias. Vasculature: Mild to moderate atherosclerotic disease. No thoracic or abdominal aortic aneurysm. Lymph nodes: Unremarkable. No enlarged lymph nodes. IMPRESSION: 1. No thoracic or abdominal aortic aneurysm. Cannot evaluate for dissection on this unenhanced study. 2. No focal infiltrate. 3. Cholelithiasis. Top normal gallbladder wall thickness. No pericholecystic fluid. 4. Other findings as above. . 01:57 ED course: CT impression - IMPRESSION: 1. No thoracic or abdominal aortic aneurysm. sp4 Cannot evaluate for dissection on this unenhanced study. 2. No focal infiltrate. 3. Cholelithiasis. Top normal gallbladder wall thickness. No pericholecystic fluid. 4. Other findings as above.. 22:24 Differential diagnosis: arthritis, Cholelithiasis chronic back pain, Myeloma Peptic sp4 Ulcer Pyelonephritis Scoliosis. Data reviewed: vital signs, nurses notes, old medical records, lab test result(s), EKG, radiologic studies, CT scan. Consideration of Admission/Observation Escalation of care including admission/observation considered. ED course: Workup today is unremarkable, CT normal, there is no sign of aortic aneurysm. Troponin x 2 is negative. Patient stable for discharge home , advised cardiology follow-up in 7 days.. 10/30 20:27 Order name: Basic Metabolic Panel; Complete Time: 23:02 4 10/30 20:27 Order name: CBC with Diff; Complete Time: 23: [facility] 10/30 20:27 Order name: LFT's; Complete Time: 23: 4 10/30 20:27 Order name: Magnesium; Complete Time: 23:02 4 10/30 20:27 Order name: NT PRO-BNP; Complete Time: 23:02 4 10/30 20:27 Order name: PT-INR; Complete Time: 23:02 4 10/30 20:27 Order name: Troponin HS; Complete Time: 23:02 4 10/31 00:04 Order name: Troponin High Sensitivity; Complete Time: 01:50 10/30 23:07 Order name: Chest Abd Pelvis Wo Con EDMS 10/31 00:04 Order name: EKG; Complete Time: 00:05 4 10/30 20:27 Order name: Cardiac monitoring; Complete Time: 21:04 4 10/30 20:27 Order name: EKG - Nurse/Tech; Complete Time: 20:39 10/30 20:27 Order name: IV Saline Lock; Complete Time: 21:04 4 10/30 20:27 Order name: Labs collected and sent; Complete Time: 21:04 4 10/30 20:27 Order name: O2 Per Protocol; Complete Time: 21:04 10/30 20:27 Order name: O2 Sat Monitoring; Complete Time: 21:03 4 10/31 00:04 Order name: EKG - Nurse/Tech; Complete Time: 01:20 sp4 EC:52 Rate is 62 beats/min. Rhythm is regular, Normal Sinus Rhythm. QRS [place] is Normal. [place] sp4 interval is normal. QRS interval is normal. QT interval is normal. No Q waves. T waves are Normal. No ST changes noted. Clinical impression: Normal ECG. Interpreted by me. Reviewed by me. Administered Medications: 10/30 21:13 Drug: NS 0.9% IV 1000 ml IV at 125 ml/hr continuous Route: IV; Rate: 125 ml/hr; Site: [facility] right antecubital; Disposition Summary: 11/01/23 01:54 Discharge Ordered Problem: new sp4 Symptoms: have improved sp4 Condition: Stable sp4 Diagnosis - Low back pain sp4 - acute lower back pain. Left arm paresthesias sp4 Followup: sp4 - With: Private Physician - When: 7 - 10 days - Reason: Recheck today's complaints Discharge Instructions: - Discharge Summary Sheet sp4 - Acute Back Pain, Adult sp4 Forms: - Patient Portal Instructions sp4 Signatures: Dispatcher [employer] Santo Cantrell RN RN jb4 Kunal Toro MD MD sp4 Corrections: (The following items were deleted from the chart) 20:28 20:28 BASIC METABOLIC PANEL+C.LAB.BRZ ordered. EDMS EDMS 20:28 20:28 CBC+H.LAB.BRZ ordered. EDMS EDMS 20:28 20:28 HEPATIC FUNCTION+C.LAB.BRZ ordered. EDMS EDMS 20:28 20:28 MAGNESIUM+C.LAB.BRZ ordered. EDMS EDMS 20:28 20:28 PROBNP+C.LAB.BRZ ordered. EDMS EDMS 20:28 20:28 PROTIME (+INR)+COAG.LAB.BRZ ordered. EDMS EDMS 20:28 20:28 Troponin High Sensitivity+C.LAB.BRZ ordered. EDMS EDMS 20:28 20:28 Angio Aorta For Dissection+CT.RAD.BRZ ordered. EDMS EDMS 10/31 00:05 00:05 Troponin High Sensitivity+C.LAB.BRZ ordered. EDMS EDMS
[2023-11-01 02:36] VITALS: BP 132/74; TEMP 97.6; O2SAT 99
--- NOTE | 2023-11-01 12:15 | RAD REPORT ---
EXAM DESCRIPTION: CT - Chest Abd Pelvis Wo Con - 11/01/2023 6:09 am CLINICAL HISTORY: Back pain eval for dissection TECHNIQUE: Axial computed tomography images of the chest, abdomen and pelvis without intravenous con trast. Sagittal and coronal reformatted images were created and reviewed. This CT exam was perfor med using one or more of the following dose reduction techniques: automated exposure control, adjus tment of the mA and/or kV according to patient size, and/or use of iterative reconstruction technique . COMPARISON: No relevant prior studies available. FINDINGS: CHEST: Lungs: Scattered bilateral subsegmental atelectasis/pleural parenchymal scar. No focal consolidatio n. No mass. Pleural space: Unremarkable. No significant effusion. No pneumothorax. Heart: Coronary artery calcification. No cardiomegaly. No significant pericardial effusion. ABDOMEN: Liver: Unremarkable. Gallbladder and bile ducts: Innumerable gallstones within a mildly contracted gallbladder. The gall bladder wall is top normal in thickness. No pericholecystic fluid. No ductal dilation. Pancreas: Unremarkable. No ductal dilation. Spleen: Splenic parenchymal calcifications compatible with remote granulomatous organism exposure. Adrenals: Unremarkable. No mass. Kidneys and ureters: Unremarkable. No obstructing stones. No hydronephrosis. Stomach and bowel: Colonic diverticula without adjacent inflammatory change. No obstruction. No mucosal thickening. PELVIS: Appendix: The appendix is not definitively visualized. No findings to suggest acute appendicitis. Bladder: Unremarkable. No stones. Reproductive: There has been a hysterectomy. No adnexal cysts or masses are identified. CHEST, ABDOMEN and PELVIS: Intraperitoneal space: Unremarkable. No significant fluid collection. No free air. Bones/joints: Osseous structures are osteopenic. Generalized loss of mid thoracic vertebral body he ight. No acute fracture. T6 intraosseous hemangioma. No dislocation. Soft tissues: Small fat-containing supraumbilical and tiny fat-containing umbilical hernias. Vasculature: Mild to moderate atherosclerotic disease. No thoracic or abdominal aortic aneurysm. Lymph nodes: Unremarkable. No enlarged lymph nodes. IMPRESSION: 1. No thoracic or abdominal aortic aneurysm. Cannot evaluate for dissection on this un enhanced study. 2. No focal infiltrate. 3. Cholelithiasis. Top normal gallbladder wall thickness. No pericholecystic fluid. 4. Other findings as above. Electronically signed by: Kevin Gr MD 11/01/2023 12:25 AM CDT RP Due to temporary technical issues with the PACS/Fluency reporting system, reports are being signed by the in house radiologist without review as a courtesy to ensure prompt reporting. The interpreting r adiologist is fully responsible for the content of the report.
--- NOTE | 2023-11-02 16:55 | EKG ---
Test Date: 2023-10-31 Test Time: 20:20:31 Filter Changing Technician: RIRI MEASUREMENT RESULTS: Intervals: Rate: 64 CA: 166 QRSD: 102 QT: 376 QTc: 387 [place]: P: 66 CA: 166 QRS: 22 T: 116 INTERPRETIVE STATEMENTS: Normal sinus rhythm Abnormal QRS-T angle, consider primary T wave abnormality Abnormal ECG Compared to ECG 08/26/2023 02:44:53 T-wave abnormality now present Myocardial infarct finding no longer present Electronically Signed On 11-02-23 16:49:48 CDT by Hiram Villela
--- NOTE | 2023-11-02 16:55 | EKG ---
Test Date: 2023-11-01 Test Time: 01:15:25 Band Manager: LINDA MEASUREMENT RESULTS: Intervals: Rate: 62 GA: 178 QRSD: 104 QT: 414 QTc: 420 [place]: P: 59 GA: 178 QRS: 0 T: 88 INTERPRETIVE STATEMENTS: Normal sinus rhythm Normal ECG Compared to ECG 08/26/2023 02:44:53 Myocardial infarct finding no longer present Electronically Signed On 11-02-23 16:49:40 CDT by Hiram Villela
== END 2023-11-01 02:21 | disposition home or self-care (01) ==
LOC: ER 19:57
DX: M54.50 Low back pain, unspecified (principal); R20.2 Paresthesia of skin; E03.9 Hypothyroidism, unspecified
CPT/HCPCS: 93005 ×2; 85025; 80048; 36415; 83735; 85610; 80076; 84484 ×2; 83880; 71250; 74176; 99284; J7030

== ENCOUNTER 2024-07-22 13:19 | Inpatient (IN) | payer OTHER, BC ==
[2024-07-22 15:43] VITALS: BMI 27.4
[2024-07-22] MEDS ORDERED: MELATONIN 3 MG TABLET PO PRN (15:47)
[2024-07-22] MEDS ORDERED: DOCUSATE NA/SENNA CONC 1 TAB PO PRN (15:47)
[2024-07-22] MEDS: TRAMADOL HCL 50 MG TAB PO PRN (20:00)
[2024-07-22] MEDS ORDERED: APIXABAN 2.5 MG TABLET PO SCH (20:00)
[2024-07-22 20:05] LABS: Specific Gravity > 1.030 (1.005-1.030); Sqamous Epithelial <5 /HPF (None Seen); Urine Bacteria <20 /HPF (<20); Urine Bilirubin NEGATIVE (Negative); Urine Blood Negative (Negative); Urine Clarity Clear (Clear); Urine Color Yellow (Yellow); Urine Culture Reflex Order NOT NEEDED; Urine Glucose NEGATIVE (Negative); Urine Ketones TRACE (Negative); Urine Micro Reflex YN NO BILL MICROSCOPIC; Urine Mucus Slight /HPF (None Seen); Urine Nitrite NEGATIVE (Negative); Urine Protein TRACE (Negative); Urine RBC <5 /HPF (None Seen); Urine Urobilinogen 1+ (Normal); Urine WBC <5 /HPF (<5)
[2024-07-23 05:45] LABS: Absolute Eosinophils 0.1 K/uL (0-0.5); Absolute Lymphocytes (CBC) 1.4 K/uL (0.7-4.9); Absolute Monocytes 0.5 K/uL (0.1-1.3); Absolute Neutrophil 2.4 K/uL (1.8-8.0); Basophils % 0.5 % (0-1.3); Eosinophils % 2.7 % (0-4.4); Hematocrit 30.5 % (36.0-45.0); Hemoglobin 10.6 g/dL (12.0-15.0); Lymphocytes % 31.1 % (15.3-44.8); MCH 32.7 pg (27.0-35.0); MCHC 34.9 g/dL (32.0-36.0); MCV 93.8 fL (80-100); MPV 9.1 fL (7.6-11.3); Monocytes % 10.3 % (3.3-12.3); Neutrophils % 55.4 % (41.7-73.7); Nucleated Red Blood Cells % 0.1 % (0-0); Platelets 224 thou/uL (152-406); RBC Red Blood Cell Count 3.25 M/uL (3.86-4.86); Red Cell Distribution Width 14.5 % (12.1-15.2)
[2024-07-23 05:49] LABS: Albumin 2.7 g/dL (3.4-5.0); Magnesium 2.2 mg/dL (1.6-2.4); Prealbumin 11.9 mg/dL (20-40)
--- NOTE | 2024-07-23 06:55 | RAD REPORT ---
EXAM: Chest Single View HISTORY: Cough COMPARISON: 08/26/2023 FINDINGS: LUNGS/PLEURA: The lungs are clear. No pleural effusions or pneumothorax. No pulmonary edema. MEDIASTINUM: The mediastinal silhouette is within normal limits. CARDIAC: The cardiac silhouette is within normal limits. UPPER ABDOMEN: No significant abnormality. BONES: No acute abnormality. LINES/TUBES/OTHER: N/A IMPRESSION: No evidence of acute cardiopulmonary disease.
[2024-07-23] MEDS: METOPROLOL TAR 25 MG TAB PO SCH (07:37)
[2024-07-23] MEDS: ASPIRIN EC 81 MG TAB PO SCH (07:37)
[2024-07-23] MEDS: PRASUGREL 10 MG PO SCH (07:37)
[2024-07-23] MEDS ORDERED: PRASUGREL (EFFIENT) 10 MG TAB PO SCH (08:00)
[2024-07-23] MEDS ORDERED: PRASUGREL 10 MG PO SCH (08:00)
[2024-07-23] MEDS: ACETAMINOPHEN 500 MG TAB PO PRN (08:29)
[2024-07-23] MEDS ORDERED: guaiFENesin 100 MG/5 ML UCUP PO PRN (09:52)
[2024-07-23] MEDS ORDERED: ALBUTEROL 2.5 MG/3 ML NEB SOL NEB PRN (09:52)
--- NOTE | 2024-07-23 11:29 | HP ---
Date of Admission: 07/22/2024 Time Of Service: 9:30 a.m. Chief Complaint: "Fell and broke my left knee." History Of Present Illness: Ms. 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 She also had an outstretched right hand, but denied any injury there and she was thus subsequently evaluated with the trauma series at [facility] where her evaluation showed a closed comminuted left patella fracture. No other injuries were identified. She was evaluated by the surgery service and had an open reduction and internal fixation of the left patella fracture. She was placed on a knee immobilizer following surgery and she was allowed to bear weight as tolerated. It is noted that she must remain without bending the knee for at least 2 weeks. She did require significant amount of pain medications to address the dull aching pain localized to the knee. Also, to the lateral aspect of the left knee. She had a cough with greenish productive sputum and was treated with vancomycin intravenously prior to switching over to oral antibiotics. She did require Mucomyst and had nebulizer treatments along with incentive spirometry. Furthermore, postoperative period complicated by some extended constipation where actually just yesterday was 6 days, she had 1 bowel movement after receiving lactulose. Her comorbids do include the coronary artery disease for which she had stenting placed in the left circumflex and LAD. Her dyslipidemia was also addressed and she was monitored on telemetry. Her medications include the aspirin, Effient, metoprolol, and she was followed by the cardiology service. She did have some mild anemia, hemoglobin of 7.6. Creatinine was normal. She was evaluated by physical therapy and occupational therapy service and found to require minimum assistance for bed mobilization and to lift the left lower extremity to be able to transfer and ambulate just about 10 feet with a rolling walker. The pain was maxed up to about 10/10. She did have pain medications to address that. While she does have some stairs at her home, she plans to go with her sister who has a single-story home and she has both a tub shower and a walk-in shower. She will require continued therapy even after leaving to help her return to her prior level of functioning and to reduce the risk of rehospitalization. Past Medical History: Dyslipidemia; hypothyroidism; ST-segment myocardial infarction, status post TNK and coronary artery disease, status post percutaneous coronary intervention. She has beta-judah and Wegovy on board. Allergies: CIPROFLOXACIN, IODINE, PENICILLIN. Medications: Tylenol Extra Strength 500 mg every 4 hours as needed, albuterol nebulizer 2.5 mg every 6 hours, aspirin 81 mg daily, Robitussin 200 mg 4 times daily, melatonin 3 mg at bedtime, Lopressor 25 mg twice daily, Senokot S 2 at bedtime, tramadol 50 mg every 6 hours as needed. Laboratory Studies: White blood cell count 4.4, hemoglobin 10.6, platelets 224. Sodium 140, potassium 4.0, chloride 106, carbon dioxide 32, BUN 14, creatinine 0.44, glucose 88, calcium 8.8. Magnesium 2.2. Albumin 2.7, prealbumin 11.9. Urinalysis, specific gravity greater than 1.03, trace ketones, 1+ urobilinogen, 75 esterase, trace protein, otherwise unremarkable. X-rays/imaging: X-ray on 07/17/2024 three views show patella fracture. Family History: Noncontributory. Social History: No alcohol, tobacco, or IV drug use. The patient lives with her in a single-story home. Review of Systems: Aside from the cough, which is improving somewhat, she has some mild pain in the lateral aspect of the left knee and otherwise denies any other issues such as myalgias, arthralgias, rash, headache, weight change, or psychiatric complaints. Current Level Of Functioning: Currently, she is eating independently; grooming, setup assistance; bathing, moderate assistance; upper body dressing, supervision; lower body dressing, moderate assistance; donning and doffing footwear, moderate assistance. For toileting, wheelchair and tub and shower transfer, moderate assistance; ambulation, she covered 10 feet with moderate assistance. Physical Examination: Vital Signs: Blood pressure is 148/73, pulse 85, respiratory rate 16, temperature 97.2, oxygen saturation 96%. General: Ms. Rodriguez is lying in bed in between therapy sessions. HEENT: She is normocephalic, atraumatic. Sclerae anicteric. Oropharynx pink and moist. Neck: Supple. Chest: Clear. Heart: Regular. Extremities: Show no clubbing, cyanosis, or edema. The left leg is immobilized from the thigh across the patella into the leg where she has a patella plate repair done. No significant edema noted in the ankles bilaterally. Neurological: She has no focal weakness in the face, arms bilaterally. Of course, the left leg is immobilized. She has good strength in dorsi and plantar flexion of both feet bilaterally. No sensory deficits noted. Rehab And Medical Assessment And Plan: Ms. Rodriguez is a 69-year-old patient admitted to the rehabilitation unit with impairment category 09, other orthopedic. Her impairment group code is 08.9 other orthopedic. Etiologic diagnosis is a closed displaced left patellar fracture. Her comorbidities include hypothyroidism; hypertension; decreased mobility; decreased physical functioning; coronary artery disease, status post percutaneous coronary artery intervention. She is status post TNK for myocardial infarction and cough and recent pneumonia. Plan: She will have physical, occupational therapy, likely she will quickly graduate out of speech therapy and therapy will continue 3 hours a day, 5 of 7 days. She will continue with medications for her hypothyroidism, which is the Synthroid. Continue with guaifenesin for cough, aspirin 81 mg daily for stroke risk reduction. She has Effient 10 mg daily for the DVT prophylaxis, tramadol for pain, Senokot for constipation, Lopressor for heart rate and blood pressure control melatonin for insomnia. She has nebulizer treatment with Proventil 2.5 mg nebulizer every 6 hours as needed. Comorbidities That Are Impacting Rehabilitation: Right now, she has a very slight cough. She will receive Robitussin for that. She has just received treatment for pneumonia. She will have incentive spirometry. Chest x-ray will be followed and she cannot bend the left knee, which puts her at increased risk of deep vein thrombus. She will have to continue with the Effient and aspirin and she will exercise the leg as much as possible within the immobilizer. Rehab Specific Plan: Ms. Rodriguez will have physical and occupational therapy 3 hours a day, 5 of 7 days to improve her ability to transfer from the bed to a chair, to a wheelchair, to a rolling walker to be able to manage with the extended leg. She was on and off the toilet, in and out the shower. Also, we will work on going up and down at least 10 steps, although she is going home with her sister who has a one-story house and she has both tub and walk-in showers, will work on going in and out of the tub as well and not likely that she would require speech as she is in excellent shape. Cognitively, no issues of swallowing identified. Ms. Rodriguez has a good understanding of the process of admission to the inpatient rehabilitation unit, how she will benefit from physical and occupational therapy. She will have 24 hours a day, 7 days a week skilled rehabilitation nursing, daily physician evaluation and management, and social service evaluation and management for continued therapy after discharge and following up along with all her medication needs. If need be, the hospitalist service and orthopedic service will be consulted. Barriers To Discharge: Currently, she has no significant barriers that stop her from thriving and doing very well and she should be able to discharge home with her family and continue therapy via Home Health given the restriction, she is unable to bend the left leg and perhaps that will continue for about 10-1/2 to 12 weeks. Length Of Stay: About 10 days. Disposition: Back home with family and continue therapy via Home Health. Prognosis: Good. Code Status: Full code. Rehab Specific Goals: 1. Become independent with upper and lower body dressing, donning and doffing footwear. 2. Independently transfer and mobilize that is onto a chair, a rolling walker. Transfer to toilet and shower all independently. 3. Ambulate 250 feet with a rolling walker. 4. Mobilize wheelchair 250 feet with independence. 5. Go up and down 10 steps with bilateral handrails. 6. Independently perform all cognitive functioning in terms of safety awareness issues and medication management. The above goals were reviewed with Ms. Rodriguez and she is in agreement. By signing this document, I acknowledge I first performed a full physical examination on Ms. Rodriguez no later than 24 hours after her admission to the inpatient rehabilitation facility and determined that she is able to tolerate the above course of treatment at an intensive level for reasonable period of time. A detailed individualized plan of care for her will be completed by hospital day 4 based on the preadmission screen, history and physical, and therapy evaluations. MALCOM Voice ID: [id number] [facility]LANDKaterine
[2024-07-23] MEDS: guaiFENesin 100 MG/5 ML UCUP PO SCH (19:34)
[2024-07-23] MEDS: ALBUTEROL 2.5 MG/3 ML NEB SOL NEB SCH (20:46)
[2024-07-24] MEDS: MAGNESIUM HYDROXIDE 8% 30 ML PO ONE (15:06)
--- NOTE | 2024-07-24 21:26 | PN ---
Date of Progress Note: 07/24/2024 Time Of Service: 1:40 p.m. Subjective: Ms. Rodriguez is lying in bed. She is feeling well about her therapy today. The left leg is in the immobilizer for the left patella displacement and fracture repair. She denies any new com plaints. Objective: No fevers, chills, nausea, vomiting. No myalgias, arthralgias except [id number] pa in in the left knee. Physical Examination: Vital Signs: Blood pressure 132/57, pulse 79, respiratory rate 16, temperature 97.4, oxygen saturati on 100%. General: Ms. Rodriguez is lying in bed. The left knee is kept extended, which it will be for until sh e is followed up by Orthopedic Surgery. HEENT: She is normocephalic, atraumatic. Sclerae anicteric. Oropharynx pink and moist. Neck: Supple. Laboratory Studies: White blood cell count 4.4, hemoglobin 10.6, platelets 224. Sodium 140, potassi um 4.0, chloride 106, carbon dioxide 22, creatinine 0.44, glucose 88. Calcium 8.8, magnesium 2.2, al bumin 2.4. Prealbumin 11.9. Urinalysis shows trace ketones, 1+ urobilinogen, esterase 75, trace pro tein. Cultures did grow less than 10,000 colony-forming units. X-ray/imaging: A chest x-ray was done. The study was clear. There was no infiltrate or acute cardi opulmonary disease. Medications: Tylenol 500 mg every 4 hours as needed, albuterol nebulizer 2.5 mg twice daily, aspirin 81 mg daily, Robitussin 200 mg twice daily, melatonin 3 mg at bedtime, Lopressor 25 mg twice daily, Senokot 2 tablets at bedtime, Ultram 50 mg every 6 hours as needed. Progress Made With Physical And Occupational Therapy: With physical therapy, she completed standing exercises at rolling walker level with 20 repetitions. She ambulated 250 feet with a rolling walker with supervision to modified independence. She was able to go up and down 20 steps, standby assistan ce. Mobilized a wheelchair 250 feet with supervision to modified independence and another 250 feet a mbulating. With occupational therapy, multiple bed mobility and toilet transfer exercises with super vision. She was independent with toileting and had minimal pain. Assessment: Ms. Rodriguez is a 69-year-old patient in rehabilitation unit with a left closed patellar fracture that is immobilized. She has decreased mobility, decreased physical functioning. She has a cough that is improving. Her pneumonia has been treated. She has constipation that is improving, a nd some mild insomnia, and hypertension. Plan: She will continue with physical and occupational therapy 3 hours a day, 5/7 days. Continue wi th comorbid condition medications, which have been outlined. CIRILO/CHERISE Voice ID: [id number] Report ID: [id number]
--- NOTE | 2024-07-25 14:01 | P.RH.PN ---
Estimated Length of Stay: 9 Expected Discharge Date: 07/29/24 Discharge Disposition Plan: Home Family Support: Yes Fire Investigator Goal: Mobility, Transfers, Self Care Vital Signs: Last Vital Signs Temp 97.9 F 07/25/24 07:28 Pulse 67 07/25/24 08:42 Resp 17 07/25/24 09:41 BP 143/74 H 07/25/24 08:42 Pulse Ox 98 07/25/24 09:41 Laboratory: Laboratory Last Values WBC 4.40 thou/uL (4.3-10.9) 07/23/24 04:52 RBC 3.25 M/uL (3.86-4.86) L 07/23/24 04:52 Hgb 10.6 g/dL (12.0-15.0) L 07/23/24 04:52 Hct 30.5 % (36.0-45.0) L 07/23/24 04:52 MCV 93.8 fL (80-100) 07/23/24 04:52 MCH 32.7 pg (27.0-35.0) 07/23/24 04:52 MCHC 34.9 g/dL (32.0-36.0) 07/23/24 04:52 RDW 14.5 % (12.1-15.2) 07/23/24 04:52 Plt Count 224 thou/uL (152-406) 07/23/24 04:52 MPV 9.1 fL (7.6-11.3) 07/23/24 04:52 Neutrophils % 55.4 % (41.7-73.7) 07/23/24 04:52 Lymphocytes % 31.1 % (15.3-44.8) 07/23/24 04:52 Monocytes % 10.3 % (3.3-12.3) 07/23/24 04:52 Eosinophils % 2.7 % (0-4.4) 07/23/24 04:52 Basophils % 0.5 % (0-1.3) 07/23/24 04:52 Absolute Neutrophils 2.4 K/uL (1.8-8.0) 07/23/24 04:52 Absolute Lymphocytes 1.4 K/uL (0.7-4.9) 07/23/24 04:52 Absolute Monocytes 0.5 K/uL (0.1-1.3) 07/23/24 04:52 Absolute Eosinophils 0.1 K/uL (0-0.5) 07/23/24 04:52 Absolute Basophils 0.0 K/uL (0-0.5) 07/23/24 04:52 Sodium 140 mEq/L (136-145) 07/23/24 04:52 Potassium 4.0 mEq/L (3.5-5.1) 07/23/24 04:52 Chloride 106 mEq/L (98-107) 07/23/24 04:52 Carbon Dioxide 32 mEq/L (21-32) 07/23/24 04:52 Anion Gap 6.0 mEq/L (5.0-15.0) 07/23/24 04:52 BUN 15 mg/dL (7-18) 07/23/24 04:52 Creatinine 0.44 mg/dL (0.55-1.02) L 07/23/24 04:52 Est GFR (CKD-EPI) 106 ml/min (=/>90) 07/23/24 04:52 Glucose 88 mg/dL (74-106) 07/23/24 04:52 Calcium 8.8 mg/dL (8.5-10.1) 07/23/24 04:52 Magnesium 2.2 mg/dL (1.6-2.4) 07/23/24 04:52 Albumin 2.7 g/dL (3.4-5.0) L 07/23/24 04:52 Prealbumin 11.9 mg/dL (20-40) L 07/23/24 04:52 Urine Color Yellow (Yellow) 07/22/24 19:45 Urine Clarity Clear (Clear) 07/22/24 19:45 Urine pH 6.0 (5.0-7.0) 07/22/24 19:45 Ur Specific [place] > 1.030 (1.005-1.030) H 07/22/24 19:45 Glucose (UA)(Auto) Negative (Negative) 07/22/24 19:45 Urine Ketones Trace (Negative) H 07/22/24 19:45 Urine Blood Negative (Negative) 07/22/24 19:45 Urine Nitrite Negative (Negative) 07/22/24 19:45 Urine Bilirubin Negative (Negative) 07/22/24 19:45 Urine Urobilinogen 1+ (Normal) H 07/22/24 19:45 Ur Leukocyte Esterase 75 Erin/uL (Negative) H 07/22/24 19:45 Urine RBC <5 /HPF (None Seen) 07/22/24 19:45 Urine WBC <5 /HPF (<5) 07/22/24 19:45 Ur Squamous Epith Cells <5 /HPF (None Seen) 07/22/24 19:45 Urine Bacteria <20 /HPF (<20) 07/22/24 19:45 Urine Mucus Slight /HPF (None Seen) 07/22/24 19:45 Urine Culture Reflexed Not needed 07/22/24 19:45 Urine Total Protein Trace (Negative) H 07/22/24 19:45 Weight: 170 lb Wound Present: No Closed Surgical Incision Present: Yes Negative Pressure Wound Therapy Present: No Physician Update: Labs were reviewed and are stable. Supervision to YOUSUF with all activities. 15 steps, independent with all dressing and transfers. Pain in the left knee is better. Summary: Patient's care plan and manager terminal goals have been reviewed and revised as necessary. Please see the Rehabilitation Signature page for all necessary signatures.
[2024-07-25] MEDS: DOCUSATE NA/SENNA CONC 1 TAB PO SCH (19:43)
[2024-07-26] MEDS: ALBUTEROL 2.5 MG/3 ML NEB SOL NEB SCH (07:30)
[2024-07-26] MEDS ORDERED: MAGNESIUM HYDROXIDE 8% 30 ML ONE (18:58)
[2024-07-26] MEDS: DOCUSATE NA/SENNA CONC 1 TAB PO SCH (19:09)
[2024-07-26] MEDS: MAGNESIUM HYDROXIDE 8% 30 ML PO PRN (19:10)
[2024-07-27] MEDS: MAGNESIUM HYDROXIDE 8% 30 ML PO SCH (07:55)
[2024-07-28] MEDS: GUAIFENESIN/DM 5 ML UCUP PO PRN (15:33)
--- NOTE | 2024-07-29 01:39 | PN ---
Date of Progress Note: 07/28/2024 Time Of Service: 1:20 p.m. Subjective: Ms. Rodriguez is lying in bed. She still has a cough which is chronic and productive of s ome greenish sputum. She did have sputum cultures that were negative. She had also a chest x-ray th at did not show pneumonia. She does have Tessalon Perles. She has nebulizer treatment, Robitussin f or the cough. Objective: Again, mild cough, but no fevers, chills. No significant chest pain. No myalgias, arthr algias, rash. No rigors or any other complaints. Physical Examination: Vital Signs: Blood pressure is 136/66, pulse 66, respiratory rate of 16, temperature 97.9, oxygen sa turation 95%. General: Again, Ms. Rodriguez is lying in bed. Extremities: She does have the left lower extremity immobilized given the patella fracture and surgi camilo repair of the fracture. She is weightbearing as tolerated with the left leg side, but she is not able to bend the leg because it is healing. Otherwise, no new findings. Laboratory Studies: No new laboratory studies. Medications: Medications have been reviewed and are unchanged. Again, she is on Tessalon Perles. A ctually she did refuse Tessalon Perles, but she has Robitussin DM for cough. She has nebulizer treat ment and albuterol as well. Progress Made With Physical And Occupational Therapy: Today with physical therapy, multiple sit-to-s tand transfers independently, simulated car transfer done independently. She ambulated over 1000 fee t around the hospital campus, outside with a rolling walker, all independently. She was up and down 25 steps with bilateral handrails and did so independently. With occupational therapy, upper body ex ercises done from room air for body alignment. She did well. IADLs and ADLs were independent. Assessment And Plan: Ms. Rodriguez is a 69-year-old patient in rehabilitation unit with closed displac ed patella fracture on the left, status post surgical repair. She still has mild decreased mobility, decreased physical functioning, but she is doing very well. She has a cough that is productive, but negative for sputum cultures and also chest x-ray showing no pneumonia. She has guaifenesin on boar d along with albuterol nebulizer treatment. She has Senokot for constipation, metoprolol for heart r ate and blood pressure control, melatonin for insomnia, milk of mag again for constipation, tramadol and Tylenol for pain. In terms of her plan, she will continue with physical and occupational therapy until she is discharged. She will continue with comorbid condition medications. She also has su villalobos with the surgeons for the patella fracture. Her discharge is in the morning. Continue therapy w [facility] physical therapy and occupational therapy following discharge. CIRILO/CHERISE Voice ID: [id number] Report ID: [id number]
[2024-07-29 08:35] VITALS: TEMP 97.8
[2024-07-29 14:42] VITALS: BP 132/64
== END 2024-07-29 11:50 | disposition home health service (06) | DRG 561 ==
LOC: 5TH 15:10
PROVIDERS: ADMIT Psychiatry & Neurology Neurology with Special Qualifications in Child Neurology; ATTEND Psychiatry & Neurology Neurology with Special Qualifications in Child Neurology
DX: S82.042D Displaced comminuted fracture of left patella, subsequent encounter for closed fracture with routine healing (principal); E78.5 Hyperlipidemia, unspecified; E03.9 Hypothyroidism, unspecified; I25.2 Old myocardial infarction; I25.10 Atherosclerotic heart disease of native coronary artery without angina pectoris; K59.00 Constipation, unspecified; G47.00 Insomnia, unspecified
CPT/HCPCS: 36415; 71045; 80048; 81001; 82040; 83735; 84134; 85025; 87070; 87086; 87088; 87205; 94640; 97110; 97112; 97116; 97163; 97165; 97530; 97542; J7613